=== PATIENT | female | born 1980 | race African-American/Black ===

== ENCOUNTER 2018-09-15 01:31 | Emergency (ER) | payer BC ==
[~2018-09-15] VITALS: Ht 154.9 cm; Wt 76.5 kg
[2018-09-15] MEDS ORDERED: SODIUM CHLORIDE 0.9% 1,000 ML IV ONE (01:51)
[2018-09-15 02:10] LABS: BASOPHILS % 1.2 % (0.0-2.0); EOSINOPHILS % 1.6 % (0.0-5.0); HEMATOCRIT. 37.3 % (36.0-48.0); HEMOGLOBIN. 12.4 g/dL (12.0-16.0); LYMPHOCYTES % 31.8 % (20.0-50.0); MEAN PLATELET VOLUME 7.4 fl (7.4-10.4); MONOCYTES % 7.4 % (2.0-8.0); PLATELET 491 x1000/uL (130-400); RED BLOOD CELL COUNT 4.14 mill/uL (4.2-5.4); RED CELL DISTRIBUTION WIDTH 13.4 % (11.6-14.6)
[2018-09-15 02:16] LABS: CHLORIDE 104 mEq/L (98-107)
[2018-09-15 02:42] LABS: B-HCG QUANTITATIVE 1807 mIU/mL (<3)
[2018-09-15] MEDS ORDERED: DIPHENHYDRAMINE 25MG CAPSULE PO SCH (03:00)
[2018-09-15] MEDS ORDERED: MORPHINE SULFATE 4 MG/ML CPJ (NOT FOR IM USE) IV SCH (03:00)
[2018-09-15 04:32] VITALS: BP 83/49
== END 2018-09-15 04:34 | disposition home or self-care (01) ==
LOC: ER 01:31
DX: O03.9 Complete or unspecified spontaneous abortion without complication (principal); O24.911 Unspecified diabetes mellitus in pregnancy, first trimester; Z3A.13 13 weeks gestation of pregnancy
CPT/HCPCS: 36415; 76801; 76817; 80053; 84702; 85025; 86850; 86900; 86901; 96374; 99284; J2270; J7030; Q0163